=== PATIENT | male | born 1980 | race Caucasian/White ===

== ENCOUNTER 2021-02-21 08:53 | Emergency (ER) | payer OTHER, BC ==
[~2021-02-21] VITALS: Ht 180.3 cm; Wt 86.2 kg
[2021-02-21] MEDS ORDERED: HYDROCODON-ACE1 EA11 PO (09:52)
== END 2021-02-21 10:52 | disposition home or self-care (01) ==
LOC: ED 08:53
DX: S62.610A Displaced fracture of proximal phalanx of right index finger, initial encounter for closed fracture (principal); W22.8XXA Striking against or struck by other objects, initial encounter; Y99.0 Civilian activity done for income or pay; F17.200 Nicotine dependence, unspecified, uncomplicated; Z88.5 Allergy status to narcotic agent
CPT/HCPCS: 26725; 73130; 99283-25; A9270